=== PATIENT | male | born 1985 | race Caucasian/White ===

== ENCOUNTER 2016-09-26 14:12 | Emergency (ER) | payer MEDICAID ==
[~2016-09-26] VITALS: Ht 165.1 cm; Wt 65.0 kg
[~2016-09-26 14:12] MED LIST: ALPR1TAB2 PO; SIMV5TAB50 PO
[2016-09-26 14:20] VITALS: Ht 165.1 cm; Wt 65.0 kg
--- NOTE | 2016-09-26 16:11 | RADRPT ---
PROCEDURE: XR Chest AP portable CLINICAL INDICATION: Chest pain TECHNIQUE: An AP portable radiograph of the chest was submitted. COMPARISON: 11/27/2015 FINDINGS: Support Hardware: None Cardiovascular: The cardiovascular silhouette appears unremarkable. Lung Leggett: The lung leggett appear clear with no nodule, alveolar infiltrate, or interstitial promi nence evident. Pleural Spaces: No pneumothorax or pleural effusion is identified. Osseous Structures: The osseous structures appear intact. Soft Tissues: The soft tissues appear unremarkable. IMPRESSION: Stable and unremarkable portable chest. Physician Henry Date Time Electronically viewed and signed by Juan Machado Physician on 09/26/2016 16:11 /
[2016-09-26] MEDS ORDERED: IBUP-1542 PO (16:40)
--- NOTE | 2016-09-26 16:50 | ERD ---
ER Documentation Chief Complaint Date/Time DATE: 09/26/16 TIME: 16:47 Chief Complaint Complains of chest and andominal pain HPI This is a 30-year-old male presents to the ER stating that he has had chest pain since Thursday. Patient states that he woke up with sharp chest pain located on one area of the right side of his chest. He denies any shortness of breath. Patient denies any fevers or chills. He denies any recent cough or cold symptoms. Patient states that pain is located only in one spot of his chest and creatinine he touches it. There is no family history of cardiac problems. Patient does smoke cigarettes. ROS 12 point review of systems was done, all negative except per HPI. Medications Home Meds Active Scripts Ibuprofen* (Motrin*) 600 Mg Tab, 600 MG PO Q6, #30 TAB Prov:REZA ODOM 09/26/16 Alprazolam* (Xanax*) 1 Mg Tab, 1 MG PO Q8H Y for ANXIETY, #10 TAB Prov:VALERIO YOO NP 11/28/15 Reported Medications Simvastatin* (Simvastatin*) Unknown Strength Tablet, PO QHS, #30 TAB 11/27/15 Allergies Allergies: Coded Allergies: No Known Allergy (Unverified , 11/27/15) PMhx/Soc History of Surgery: No Anesthesia Reaction: No Hx Neurological Disorder: No Hx Respiratory Disorders: No Hx Cardiac Disorders: No Hx Psychiatric Problems: No Hx Miscellaneous Medical Probl: Yes (HIGH CHOLESTEROL) Hx Alcohol Use: No Hx Substance Use: No Hx Tobacco Use: No Physical Exam Vitals Vital Signs Date Time Temp Pulse Resp B/P Pulse Ox O2 Delivery O2 Flow Rate FiO2 09/26/16 14:20 98.3 61 20 129/77 98 Physical Exam GENERAL: The patient is well developed and appropriate for usual state of health , in no apparent distress. HEENT: Atraumatic. Conjunctivae are pink. Pupils equal, round, and reactive to light. Extraocular muscles are grossly intact. Bilateral tympanic membranes are clear with no evidence of erythema, effusion or dulling of the light reflex. The oropharynx is clear with no erythema or exudates. NECK: C-spine is soft and supple. There is no cervical lymphadenopathy. CHEST: Clear to auscultation bilaterally. There are no rales, wheezes or rhonchi. HEART: Regular rate and rhythm. No murmurs, clicks, rubs or gallops. ABDOMEN: Soft, nontender and nondistended. Good bowel sounds. No rebound or guarding. No gross peritonitis. No gross organomegaly or masses. No Chang sign or McBurney point tenderness. No pulsatile masses. BACK: No midline or flank tenderness. EXTREMITIES: Equal pulses bilaterally. There is no peripheral clubbing, cyanosis or edema. No focal swelling or erythema. Full range of motion. Grossly neurovascularly intact. NEURO: Alert and oriented. Cranial nerves II through XII are intact. Motor strength in all 4 extremities with 5/5 strength. Sensation grossly intact. Normal speech and gait. SKIN: There is no apparent rash or petechia. The skin is warm and dry. Results 24 hrs [place] [id number] Radiology Main Line: [phone] DIAGNOSTIC IMAGING REPORT Patient: MAURICIO AU : 1985 Age: 30 Sex: M MR #: [id number] DOS: 09/26/16 0000 Ordering MD: REZA ODOM. PA-C Location: [facility] Room/Bed: PROCEDURE: XR Chest AP portable CLINICAL INDICATION: Chest pain TECHNIQUE: An AP portable radiograph of the chest was submitted. COMPARISON: 11/27/2015 FINDINGS: Support Hardware: None Cardiovascular: The cardiovascular silhouette appears unremarkable. Lung Romero: The lung romero appear clear with no nodule, alveolar infiltrate, or interstitial prominence evident. Pleural Spaces: No pneumothorax or pleural effusion is identified. Osseous Structures: The osseous structures appear intact. Soft Tissues: The soft tissues appear unremarkable. IMPRESSION: Stable and unremarkable portable chest. Physician Henry Date Time Electronically viewed and signed by Physician Henry on 09/26/2016 16:11 RH/ CC: REZA ODOM Procedures/MDM EKG was done [address] elevation or T-wave inversion this EKG was read by Dr. Gallo Differential diagnosis includes but is not limited to; STEMI, dissection, pneumothorax, PE, esophageal rupture, tamponade, pneumonia, pericarditis, GERD, musculoskeletal, endocarditis, anxiety. At this time pain is reproducible on physical examination is likely musculoskeletal in nature. Patient does not have any PERC criteria. Patient is afebrile and well-appearing I doubt infectious etiology. Upon discharge patient started complaining of left knee pain was started yesterday. I examined patients the patient had full range of motion of the knee with no erythema, edema or deformities. She denies any trauma, at this time I do not believe that x-rays are necessary as patient is ambulating without any pain. Patient was advised to take ibuprofen and to elevate and rest knee. If symptoms continue patient should follow-up with his primary care doctor to get an outpatient x-ray. He also is to follow-up for his chest pain. Patient needs to return to ER sooner if symptoms worsen. My medical decision making shared with the patient he understands and agrees with plan. Departure Diagnosis: Primary Impression: Chest wall pain Condition: Stable Patient Instructions: Chest Wall Pain, Costochondritis Additional Instructions: Call your primary care doctor TOMORROW for an appointment during the next 1-2 days.See the doctor sooner or return here if your condition worsens before your appointment time. REZA ODOM Sep 26, 2016 16:50
== END 2016-09-26 17:10 | disposition home or self-care (01) ==
LOC: FTE 14:12
DX: R07.89 Other chest pain (principal); F17.210 Nicotine dependence, cigarettes, uncomplicated
CPT/HCPCS: 71010; Z7502; 93005

== ENCOUNTER 2017-11-01 12:58 | Emergency (ER) | END 2017-11-01 14:55 | disposition home or self-care (01) ==